=== PATIENT | male | born 1985 | race African-American/Black ===

== ENCOUNTER 2019-03-07 15:10 | Emergency (ER) | payer MEDICAID ==
--- NOTE | 2019-03-07 15:51 | ED ---
Throat Pain/Nasal Congestion - HPI Summary HPI Summary: Patient is a 33-year-old male presenting with 1.5 weeks of throat pain.Sore throat has been persistent and has remained the same in severity. Patient states this initially was accompanied by fever and cervical lymphadenopathy, which has since abated. Has nonproductive cough. States he has been experiencing "ear pressure" for the last few days with decreased hearing. Denies chills, SOB, chest pain, facial pain, headache. Denies difficulty swallowing, eating and drinking without problem. 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 - History of Current Complaint Chief Complaint: EDThroatPain Time Seen by Provider: 03/07/19 15:44 Hx Obtained From: Patient - Allergies/Home Medications Allergies/Adverse Reactions: Allergies Allergy/AdvReac Type Severity Reaction Status Date / Time No Known Allergies Allergy Verified 03/07/19 15:14 PMH/Surg Hx/FS Hx/Imm Hx Endocrine/Hematology History: Denies: Hx Anticoagulant Therapy Respiratory History: Reports: Hx Asthma Infectious Disease History: No Infectious Disease History: Denies: Traveled Outside the [place] in Last 30 Days - Family History Known Family History: Positive: Non-Contributory - Social History Alcohol Use: Occasionally Substance Use Type: Reports: None Review of Systems Constitutional: Negative Negative: Fever, Chills, Fatigue Eyes: Negative Positive: Sore Throat, Ear Ache - ear fullness per patient. Negative: Nasal Discharge Cardiovascular: Negative Negative: Palpitations, Chest Pain Positive: Cough - nonproductive. Negative: Shortness Of Breath Gastrointestinal: Negative Negative: Abdominal Pain, Vomiting, Nausea Genitourinary: Negative Positive: no symptoms reported Musculoskeletal: Negative Negative: Myalgia Skin: Negative Negative: Rash Neurological: Negative Negative: Headache Psychological: Normal All Other Systems Reviewed And Are Negative: Yes Physical Exam Triage Information Reviewed: Yes Vital Signs On Initial Exam: Initial Vitals Temp Pulse Resp BP Pulse Ox 98.0 F 52 18 122/77 100 03/07/19 15:12 03/07/19 15:12 03/07/19 15:12 03/07/19 15:12 03/07/19 15:12 Vital Signs Reviewed: Yes Appearance: Positive: Well-Appearing, No Pain Distress, Well-Nourished Skin: Positive: Warm, Skin Color Reflects Adequate Perfusion, Dry Head/Face: Positive: Normal Head/Face Inspection Eyes: Positive: Normal, EOMI, MANI, Conjunctiva Clear. Negative: Discharge ENT: Positive: Normal ENT inspection, Hearing grossly normal, Pharyngeal erythema - mildly erythematous, TM red - TM intact. + erythema L > R. L TM with dull cone of light. No bulging, fluid noted., Uvula midline, Other - soft palate symmetric. Negative: Nasal congestion, Nasal drainage, Tonsillar swelling, Tonsillar exudate, Trismus, Muffled voice, Sinus tenderness Neck: Positive: Supple, Nontender, No Lymphadenopathy Respiratory/Lung Sounds: Positive: Clear to Auscultation, Breath Sounds Present. Negative: Rales, Rhonchi, Wheezes Cardiovascular: Positive: Normal, RRR, S1, S2. Negative: Murmur, Rub Abdomen Description: Positive: Nontender, Soft Bowel Sounds: Positive: Present Musculoskeletal: Positive: Normal Neurological: Positive: Normal, Alert, Oriented to Person Place, Time, CN Intact II-III Psychiatric: Positive: Normal, Affect/Mood Appropriate AVPU Assessment: Alert - [place] Coma Scale Best Eye Response: 4 - Spontaneous Best Motor Response: 6 - Obeys Commands Best Verbal Response: 5 - Oriented Coma Scale Total: 15 Procedures - Sedation Patient Received Moderate/Deep Sedation with Procedure: No Diagnostics - Vital Signs Vital Signs Temp Pulse Resp BP Pulse Ox 03/07/19 15:12 98.0 F 52 18 122/77 100 - Laboratory Lab Statement: Any lab studies that have been ordered have been reviewed, and results considered in the medical decision making process. EENT Course/Dx - Course Course Of Treatment: 33 year old male presents with sore throat for the past week. Has had occasional cough. No chest pain or shortness of breath pain. Is also complaining of ear pain. It feels like pressure in ears. On exam left TM is erythematous. Some fluid noted behind bilateral TMs. Pharynx erythematous. Uvula midline. We'll treat as otitis media with Augmentin. told to est care with primary. Patient understands and agrees with plan. - Differential Diagnoses Differential Diagnoses: Otitis Media, Pharyngitis, URI/Bronchitis - Diagnoses Provider Diagnoses: Otitis media Discharge ED - Sign-Out/Discharge Documenting (check all that apply): Patient Departure - Discharge Plan Condition: Good Disposition: HOME Prescriptions: Amoxicillin/Clavulanate TAB* [Augmentin TAB 875*] 875 mg PO BID #13 tab Patient Education Materials: Ear Infection (ED) Referrals: [facility] [place] [facility]FERR[facility] [Outside] Additional Instructions: Take antibiotic twice a day for 7 days Take Tylenol or ibuprofen for pain every 6 hours take use sudafed twice a day use nasal saline in nose establish care with primary Return to ED if develop any new or worsening symptoms - Billing Disposition and Condition Condition: GOOD Disposition: Home
[2019-03-07] MEDS ORDERED: Amoxicillin/Clavulanate TAB* 875 MG PO ONE (16:02)
[2019-03-07 16:49] VITALS: BP 115/69
== END 2019-03-07 16:46 | disposition home or self-care (01) ==
LOC: ED 15:10
DX: H66.93 Otitis media, unspecified, bilateral (principal); J45.909 Unspecified asthma, uncomplicated
CPT/HCPCS: 99282; A9270-GY